=== PATIENT | female | born 1995 | race African-American/Black ===

== ENCOUNTER 2016-12-13 14:16 | Emergency (ER) | payer OTHER ==
--- NOTE | ~2016-12-13 | CT71 ---
[facility] A Service of [facility] RADIOLOGY TEXT RESULTS PATIENT: LIVIER MELTON LOCATION: [facility] : [birth year] UNIT #: [id number] AGE: [address]: Valentina Richardson SEX: F ORDER DR: [id number] [facility]. [place], [place] [address] [id number] MR#: [id number] Acc #: [id number] NAME: LIVIER MELTON : 1995 SEX: F STUDY DATE/TIME: 12/13/2016 16:32 UNIT: CFTX ROOM: STUDY DESCRIPTION: CT Head Wo Contrast Attending Physician: Valentina Richardson P.A.-C. Ordering Physician: Valentina Richardson P.A.-C. Primary Care Physician: No Primary Care Physician MEDICAL IMAGING REPORT This report is preliminary unless electronic signature is present EXAM Head CT brain without contrast media HISTORY Headache for 2-hours. TECHNIQUE Axial imaging of the brain was performed without contrast media. Bone and soft tissue windows are reviewed. This CT exam was performed with one or more of the following radiation dose reduction techniques: automatic control, adjustment of mA and/or kV according to patient size, and iterative reconstruction. FINDINGS Ventricular size configuration is normal. No intra or extraaxial mass lesions, fluid collections or mass effect are seen. No focal areas of low attenuation or evidence of acute intracranial hemorrhage. Bone windows are reviewed and appear unremarkable. CONCLUSION 1. Negative noncontrast CT of the brain Dictated by... Eddy Jackson M.D. THIS IS AN ELECTRONICALLY VERIFIED REPORT Eddy Jackson M.D. at 12/16/2016 9:18 AM CARMEN/rajiv TD: 12/13/2016 19:40 JOB #: [id number] MEDICAL IMAGING REPORT [facility] A Service of [facility] RADIOLOGY TEXT RESULTS PATIENT: LIVIER MELTON LOCATION: [facility] : [birth year] UNIT #: [id number] AGE: [address]: Valentina Richardson SEX: F ORDER DR: Page 1 of 1 COPY
[~2016-12-13 14:16] MED LIST: MOTRIN400 MG PO; TYLENOL #3 PO
== END 2016-12-13 17:30 | disposition home or self-care (01) ==
LOC: CFTX 14:16 → CED 14:16 → CFTX 15:15
DX: R51 Headache (principal); I10 Essential (primary) hypertension
CPT/HCPCS: 36415; 70450; 84703; 96361; 96365; 96374; 96375; 99284; J1100; J1200; J2405; J2765